=== PATIENT | female | born 1985 | race Caucasian/White ===

== ENCOUNTER 2018-10-28 09:18 | Emergency (ER) | payer OTHER ==
[2018-10-28] MEDS ORDERED: NS 1,000 ML IV ONE (09:54)
--- NOTE | 2018-10-28 09:58 | EDPHY ---
H & P Stated Complaint: Palpitations, SOB since yesterday Time Seen by Provider: 10/28/18 09:38 HPI/ROS: This patient describes a combination of dyspnea, lightheadedness and fleeting chest pains. She explains that yesterday she engaged in a difficult exercise regime was aerobic type workout and felt more dyspnea on exertion than typical and had fleeting chest pain described as achy lasting a few seconds at a time during work out. Afterwards she reports sneezing episode that was prolonged associated with a dry cough and ongoing dyspnea. She also describes intermittent lightheadedness that feels positional to her. She furthermore describes heart palpitations that feel like a racing heart that started gradually and goes away gradually since yesterday. She denies any chest pain since yesterday but has ongoing feeling of dyspnea/air hunger currently. She relates that over the past 2 weeks she has engaged in vigorous aerobic exercise on 4 occasions and had similar episodes on the 3 prior days of vigorous exercise but of lesser intensity in without any chest pain until yesterday's workout. She is accompanied by her brought her in by private vehicle for evaluation of the symptoms. ROS: Constitutional: No fevers or chills recently. Psychiatric: She reports increased life stressors recently-family moved from [facility] to [place] over the holidays and she is having to do more driving. She reports no difficulty sleeping. HEENT: She had sinus pain last week associated with nasal congestion and saw her dentist due to perceived right upper incisor pain. Her dentist advised that she has take Claritin-D and she reports that since starting that medication she has had resolution of her sinus symptoms. Currently no facial pain. Pulmonary: Mild cough with exercise. No hemoptysis. Cardiovascular: As per HPI. No leg swelling or calf pain recently. GI: No nausea vomiting or abdominal pain. 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 - Family History Significant Family History: No pertinent family hx - Social History Smoking Status: Never smoked Alcohol Use: Occasionally Drug Use: None - Physical Exam Exam: General Appearance: Alert, no distress. Eyes: Pupils equal and round no pallor or injection. ENT, Mouth: Mucous membranes moist. Respiratory: There are no retractions, lungs are clear to auscultation. Cardiovascular: Regular rate and rhythm. No murmur gallop rub. No peripheral edema. Gastrointestinal: Abdomen is soft and nontender, no masses, bowel sounds normal. Neurological: GCS 15 with no focal deficits. Skin: Warm and dry, no rashes. Musculoskeletal: Neck is supple nontender. Extremities are symmetrical, full range of motion. Psychiatric: Mood and affect are normal DIFFERENTIAL DIAGNOSIS: After history and physical exam differential diagnosis was considered for exercise-induced asthma exacerbation, anxiety, pulmonary embolism, anemia, metabolic abnormality Constitutional: Initial Vital Signs Temperature (C) 36.6 C 10/28/18 09:23 Heart Rate 115 H 10/28/18 09:23 Respiratory Rate 16 10/28/18 09:23 Blood Pressure 159/89 H 10/28/18 09:23 O2 Sat (%) 100 10/28/18 09:23 O2 Delivery Mode Room Air Allergies/Adverse Reactions: No Known Allergies Allergy (Unverified 10/28/18 09:33) Home Medications: Medication Instructions Recorded Claritin-D 24 Hour Tablet 10/28/18 Levalbuterol Inhaler [Xopenex Hfa 2 puffs IH Q4 PRN #1 mdi 10/28/18 Inhaler] Medical Decision Making - Diagnostics EKG Interpretation: 12 lead EKG performed at 9:36 a.m. Indication-dyspnea, Reveals sinus rhythm at 93 Intervals: Normal throughout [place]: Normal throughout ST segments: Normal throughout Overall assessment: sinus rhythm, possible left atrial enlargement Imaging Results: Two view chest x-ray: I read this as normal with no focal infiltrates or significant findings other than minimal airway disease. However the radiologist called and noted pleural thickening at the left base verses a small effusion. I related this finding to the patient Imaging: I viewed and interpreted images myself ED Course/Re-evaluation: IV, monitor, normal saline bolus with resolution of tachycardia. Patient's peak flow was near expected-480 with a predicted of 490 Labs: Normal CBC, basic metabolic panel, D-dimer and troponin. Urine test is negative. Discussion: Patient with dyspnea with exertion during new vigorous workouts with a history of exercise-induced asthma as a child and recent moved to a new home. I suspect the patient is having exercise-induced asthma response to her counts and counseled regarding this. Today she has negative workup here for any evidence of significant acute cardiopulmonary pathology. Will plan to treat her with Xopenex inhaler, continue antihistamines. She will follow up with primary care physician and understands need to return should she develop any significant worsening of symptoms despite the treatment plan. - Data Points Medications Given: Discontinued Medications Sodium Chloride (Ns) 1,000 mls @ 0 mls/hr IV EDNOW ONE; Wide Open PRN Reason: Protocol Stop: 10/28/18 09:55 Last Admin: 10/28/18 10:22 Dose: 1,000 mls Point of Care Test Results: CBC CBC Collection Date 10/28/18 CBC Collection Time 10:00 WBC 5.28 RBC 4.95 HGB 14.4 HCT 43.3 PLT 205 Neut # 3.07 Neut 58.1 LYMPH # 1.67 LYMPH 31.6 MCV 87.5 Chemistry 10/28/18 10/28/18 10:10 10:03 POC Sodium 144 mEq/L mEq/L (135-145) POC Potassium 3.0 mEq/L L mEq/L (3.3-5.0) POC Chloride 106.0 mEq/L mEq/L (97-110) POC Total CO2 25 mEq/L mEq/L (22-31) POC BUN 8 mg/dL mg/dL (7-23) POC Creatinine 0.9 mg/dL mg/dL (0.6-1.0) POC Glucose 117 mg/dL H mg/dL (70-100) POC Calcium 9.6 mg/dL mg/dL (8.5-10.4) POC Troponin I 0.00 ng/mL ng/mL (0.00-0.08) D-Dimer D-Dimer Collection Date 10/28/18 D-Dimer Collection Time 09:55 D-Dimer (ng/ml) LESS THAN 100 Urine Collection Date 10/28/18 Collection Time 10:52 HCG Results Negative Departure - Departure Disposition: Home, Routine, Self-Care Clinical Impression: Dyspnea on exertion, Atypical chest pain Condition: Good Instructions: Exercise-Induced Bronchoconstriction (ED) Additional Instructions: Diagnoses: 1. Dyspnea on exertion 2. Atypical chest pain Plan: Try Xopenex inhaler prior to exercise. Remember to temper the intensity of your exercise until your body adjusts gradually to renewed exertion. Stop the Claritin-D as the dextromethorphan may be a cardiac stimulant. You can use regular Claritin without the dextromethorphan Remember to balance here exercise with him relaxation as well to help foster your body's parasympathetic rest and digest response. Consider activities such as hot baths, contemplative prayer or meditation. Call your primary care physician or Dr. Mccain if he did not have 1 to make follow-up appointment for recheck in 3-7 days. If you're still having significant pulmonary symptoms despite the use of the Xopenex with exercise then consider seeing the heel boom operator-Dr. Sims listed below. Return emergency department for any significant worsening of her symptoms despite the treatment plan. Referrals: Nazario Sims MD [Medical Doctor] - As per Instructions Anthony Mccain MD [[facility] [place] Primary Care Provider] - As per Instructions NONE *PRIMARY CARE P,. [Primary Care Provider] - As per Instructions DEVONTE HAINES [Medical Doctor] - As per Instructions Prescriptions: Levalbuterol Inhaler [Xopenex Hfa Inhaler] 2 puffs IH Q4 PRN #1 mdi PRN Reason: Wheezing
[2018-10-28 11:55] VITALS: BP 128/89
== END 2018-10-28 12:07 | disposition home or self-care (01) ==
LOC: CED 09:18
DX: R07.9 Chest pain, unspecified (principal); R06.09 Other forms of dyspnea; E86.9 Volume depletion, unspecified
CPT/HCPCS: 71046-PO; 80048-ER; 84484-ER; 96360-ER